=== PATIENT | male | born 1990 | race African-American/Black ===

== ENCOUNTER 2017-07-06 04:00 | Emergency (ER) | payer MEDICAID ==
[~2017-07-06] VITALS: Ht 185.4 cm; Wt 54.4 kg
[2017-07-06 08:50] VITALS: BP 98/61
[2017-07-06 09:49] LABS: Basophils # (auto) 0.1 uL; Eosinophils # (auto) 0.1 uL; Neutrophils # (auto) 9.6 uL; Red Cell Distribution Width 17.5 % (11.8-14.3)
[2017-07-06 09:51] LABS: Albumin 3.2 g/dL (3.4-5.0); BUN/Creatinine Ratio 21.3; Basophils % (auto) 0.5 % (0.0-2.0); Calcium 8.9 mg/dL (8.5-10.1); Eosinophils % (auto) 1.1 % (0.0-7.0); Hematocrit 36.4 % (41.0-53.0); Hemoglobin 11.4 g/dL (13.5-17.5); Lymphocytes # (auto) 2.2 uL; Lymphocytes % (auto) 17.2 % (10.0-50.0); Mean Corpuscular Hemoglobin 23.2 pg (28.0-32.0); Mean Corpuscular Hgb Conc. 31.2 g/dL (32.0-36.0); Mean Corpuscular Volume 74.3 fL (80.0-100.0); Monocytes # (auto) 0.6 uL; Monocytes % (auto) 4.5 % (0.0-12.0); Neutrophils % (auto) 76.7 % (37.0-80.0); Platelet Count (auto) 516 10^3/uL (140-450); Potassium 3.6 mmol/L (3.5-5.1); Red Blood Cells 4.89 10^6/uL (4.5-5.90); White Blood Cell 12.5 10^3/uL (4.4-10.8)
[2017-07-06 09:55] LABS: Bilirubin, Total 0.8 mg/dL (0.2-1.0); Total Protein 9.7 g/dL (6.4-8.2)
== END 2017-07-06 11:06 | disposition home or self-care (01) ==
LOC: ER 04:00
DX: S31.829D Unspecified open wound of left buttock, subsequent encounter (principal); S31.819D Unspecified open wound of right buttock, subsequent encounter; X58.XXXD Exposure to other specified factors, subsequent encounter; Z91.041 Radiographic dye allergy status
CPT/HCPCS: 36415; 80053; 83605; 85025; 87040

== ENCOUNTER 2018-04-20 19:04 | Emergency (ER) | payer MEDICAID ==
[~2018-04-20] VITALS: Ht 185.4 cm; Wt 59.0 kg
[2018-04-20 19:19] VITALS: BP 124/78
[2018-04-20 21:59] LABS: Basophils # (auto) 0.1 uL; Basophils % (auto) 0.6 % (0.0-2.0); Eosinophils # (auto) 0.2 uL; Eosinophils % (auto) 1.7 % (0.0-7.0); Hematocrit 35.9 % (41.0-53.0); Hemoglobin 11.3 g/dL (13.5-17.5); Lymphocytes # (auto) 2.8 uL; Lymphocytes % (auto) 20.3 % (10.0-50.0); Mean Corpuscular Hemoglobin 21.9 pg (28.0-32.0); Mean Corpuscular Hgb Conc. 31.5 g/dL (32.0-36.0); Mean Corpuscular Volume 69.5 fL (80.0-100.0); Monocytes % (auto) 7.3 % (0.0-12.0); Neutrophils # (auto) 9.7 uL; Neutrophils % (auto) 70.1 % (37.0-80.0); Nucleated Red Blood Cells % 0.1 %; Platelet Count (auto) 468 10^3/uL (140-450); Red Blood Cells 5.17 10^6/uL (4.5-5.90); Red Cell Distribution Width 17.2 % (11.8-14.3); White Blood Cell 13.9 10^3/uL (4.4-10.8)
[2018-04-20 22:13] LABS: Albumin 2.9 g/dL (3.4-5.0); Calcium 8.5 mg/dL (8.5-10.1); Potassium 3.8 mmol/L (3.5-5.1)
[2018-04-20 22:16] LABS: BUN/Creatinine Ratio 17.2; Bilirubin, Total 0.3 mg/dL (0.2-1.0); Total Protein 8.7 g/dL (6.4-8.2)
== END 2018-04-21 08:21 | disposition left against medical advice (07) ==
LOC: ER 19:14
DX: S91.302D Unspecified open wound, left foot, subsequent encounter (principal); Z53.21 Procedure and treatment not carried out due to patient leaving prior to being seen by health care provider; X58.XXXD Exposure to other specified factors, subsequent encounter
CPT/HCPCS: 36415; 80053; 85025

== ENCOUNTER 2018-12-06 22:36 | Emergency (ER) | payer MEDICAID ==
[~2018-12-06] VITALS: Ht 185.4 cm; Wt 74.8 kg
[2018-12-07 01:12] VITALS: BP 111/66
[2018-12-07] MEDS ORDERED: GABAPENTIN 400 MG CAP PO ONE (01:45)
== END 2018-12-07 01:58 | disposition home or self-care (01) ==
LOC: ER 22:41
DX: G62.9 Polyneuropathy, unspecified (principal); T14.8XXA Other injury of unspecified body region, initial encounter; G82.20 Paraplegia, unspecified; X58.XXXA Exposure to other specified factors, initial encounter; Y93.89 Activity, other specified; Y99.8 Other external cause status; Y92.89 Other specified places as the place of occurrence of the external cause

== ENCOUNTER 2018-12-18 14:47 | Emergency (ER) | payer MEDICAID ==
[~2018-12-18] VITALS: Ht 185.4 cm; Wt 54.4 kg
[2018-12-18 15:08] VITALS: BP 120/84
== END 2018-12-18 15:14 | disposition left against medical advice (07) ==
LOC: ER 14:52
DX: R10.9 Unspecified abdominal pain (principal); Z53.21 Procedure and treatment not carried out due to patient leaving prior to being seen by health care provider

== ENCOUNTER → 2018-12-23 09:40 | Emergency (ER) | payer MEDICAID ==
[~2018-12-23] VITALS: Ht 185.4 cm; Wt 50.4 kg
[~2018-12-23 09:40] MED LIST: PIPERACILLIN-TAZOB 3.375GM 100 ML IV ONE; SODIUM CHLORIDE 0.9% 1,000 ML IV ONE; VANCOMYCIN 1GM/250ML 250 ML IV ONE
[2018-12-23 10:44] LABS: Basophils # (auto) 0 uL; Hematocrit 40.4 % (41.0-53.0); Lymphocytes # (auto) 1.3 uL; Neutrophils # (auto) 4.5 uL; Red Cell Distribution Width 19.6 % (11.8-14.3); White Blood Cell 6.4 10^3/uL (4.4-10.8)
[2018-12-23 10:46] LABS: Basophils % (auto) 0.4 % (0.0-2.0); Eosinophils # (auto) 0.2 uL; Eosinophils % (auto) 2.7 % (0.0-7.0); Hemoglobin 12.7 g/dL (13.5-17.5); Lymphocytes % (auto) 20.6 % (10.0-50.0); Mean Corpuscular Hemoglobin 24.2 pg (28.0-32.0); Mean Corpuscular Hgb Conc. 31.4 g/dL (32.0-36.0); Mean Corpuscular Volume 76.9 fL (80.0-100.0); Monocytes # (auto) 0.3 uL; Monocytes % (auto) 5.5 % (0.0-12.0); Neutrophils % (auto) 70.8 % (37.0-80.0); Nucleated Red Blood Cells % 0.1 %; Platelet Count (auto) 298 10^3/uL (140-450); Red Blood Cells 5.26 10^6/uL (4.5-5.90)
[2018-12-23 11:02] LABS: Albumin 2.9 g/dL (3.4-5.0); Anion Gap 8 (5-15); Aspartate Aminotransferase 17 U/L (15-37); Blood Urea Nitrogen 8 mg/dL (7-18); Calcium 8.5 mg/dL (8.5-10.1); Carbon Dioxide 23 mmol/L (21-32); Chloride 110 mmol/L (98-107); Glucose 83 mg/dL (74-106); Potassium 3.9 mmol/L (3.5-5.1); Sodium 141 mmol/L (136-145)
[2018-12-23 11:06] LABS: Alanine Aminotransferase 23 U/L (16-61); Alkaline Phosphatase 73 U/L (45-117); BUN/Creatinine Ratio 9.3; Bilirubin, Total 0.3 mg/dL (0.2-1.0); GFR African American 135 mL/min; GFR Non-African American 112 mL/min; Total Protein 7.9 g/dL (6.4-8.2)
[2018-12-23 13:59] VITALS: BP 108/58
== END | disposition home or self-care (01) ==
LOC: ER 09:40
DX: L89.219 Pressure ulcer of right hip, unspecified stage (principal); L03.317 Cellulitis of buttock; E46 Unspecified protein-calorie malnutrition; F17.210 Nicotine dependence, cigarettes, uncomplicated; Z88.5 Allergy status to narcotic agent; Z88.8 Allergy status to other drugs, medicaments and biological substances; Z68.1 Body mass index [BMI] 19.9 or less, adult
CPT/HCPCS: 36415; 71045; 80053; 83605; 84484; 85025; 87040; 96365; 99284; J3370; J7030; J2543

== ENCOUNTER 2018-12-28 10:34 | Inpatient (IN) | payer MEDICAID ==
[~2018-12-28] VITALS: Ht 185.4 cm; Wt 74.1 kg
[2018-12-28] MEDS ORDERED: SODIUM CHLORIDE 0.9% 1,000 ML IV ONE (11:21)
[2018-12-28 12:02] LABS: Basophils # (auto) 0 uL; Eosinophils # (auto) 0.2 uL; Hemoglobin 14.6 g/dL (13.5-17.5); Lymphocytes # (auto) 1.9 uL; Mean Corpuscular Hemoglobin 24.5 pg (28.0-32.0); Monocytes # (auto) 0.3 uL
[2018-12-28 12:04] LABS: Basophils % (auto) 0.5 % (0.0-2.0); Eosinophils % (auto) 2.3 % (0.0-7.0); Hematocrit 46.5 % (41.0-53.0); Lymphocytes % (auto) 21.8 % (10.0-50.0); Mean Corpuscular Hgb Conc. 31.4 g/dL (32.0-36.0); Mean Corpuscular Volume 78.1 fL (80.0-100.0); Monocytes % (auto) 3.2 % (0.0-12.0); Neutrophils # (auto) 6.2 uL; Neutrophils % (auto) 72.2 % (37.0-80.0); Nucleated Red Blood Cells % 0.1 %; Platelet Count (auto) 224 10^3/uL (140-450); Red Blood Cells 5.96 10^6/uL (4.5-5.90); Red Cell Distribution Width 19.4 % (11.8-14.3); White Blood Cell 8.6 10^3/uL (4.4-10.8)
[2018-12-28 12:23] LABS: Albumin 3.5 g/dL (3.4-5.0); BUN/Creatinine Ratio 14.3; Potassium 3.9 mmol/L (3.5-5.1)
[2018-12-28 12:26] LABS: Bilirubin, Total 0.2 mg/dL (0.2-1.0); Total Protein 8.9 g/dL (6.4-8.2)
[2018-12-28] MEDS ORDERED: TEMAZEPAM 15 MG CAP PO PRN (14:30)
[2018-12-28] MEDS ORDERED: PROMETHAZINE HCL 25 MG/ML 1ML IV PRN (14:30)
[2018-12-28] MEDS ORDERED: HYDROcodone-ACET 5/325MG TAB PO PRN (14:30)
[2018-12-28] MEDS ORDERED: ACETAMINOPHEN 500 MG TAB PO PRN (14:30)
[2018-12-28] MEDS ORDERED: LEVOFLOXACIN 500MG 100 ML IV ONE (14:30)
[2018-12-28] MEDS: SODIUM CHLORIDE 0.9% 1,000 ML IV SCH ×3 (14:37→16:19)
[2018-12-28] MEDS ORDERED: KETOROLAC TROMETH 30 MG/ML 1ML VIAL IV PRN (14:45)
[2018-12-28] MEDS: KETOROLAC TROMETH 30 MG/ML 1ML VIAL IV PRN ×2 (15:07→21:53)
[2018-12-28 17:00] VITALS: BP 112/75
[2018-12-28] MEDS: CLINDAMYCIN 600MG IV 50 ML IV SCH (21:52)
[2018-12-28] MEDS: FAMOTIDINE 20 MG TAB PO SCH (21:52)
[2018-12-28 22:00] VITALS: BP 101/62
[2018-12-29] MEDS: KETOROLAC TROMETH 30 MG/ML 1ML VIAL IV PRN ×3 (05:11→20:38)
[2018-12-29] MEDS: CLINDAMYCIN 600MG IV 50 ML IV SCH ×3 (05:11→21:54)
[2018-12-29 05:47] VITALS: BP 99/50
[2018-12-29 09:15] VITALS: BP 87/55
[2018-12-29] MEDS: LEVOFLOXACIN 500MG 100 ML IV SCH (10:53)
[2018-12-29] MEDS: FAMOTIDINE 20 MG TAB PO SCH ×2 (10:54→21:54)
[2018-12-29 14:19] VITALS: BP 122/70
[2018-12-29] MEDS ORDERED: OXYCODONE W/ ACETAMINOPHEN 5/325MG TABLET PO PRN (16:15)
[2018-12-29] MEDS: OXYCODONE W/ ACETAMINOPHEN 5/325MG TABLET PO PRN (16:38)
[2018-12-29 22:00] VITALS: BP 100/66
[2018-12-30 05:00] VITALS: BP 99/50
[2018-12-30] MEDS: CLINDAMYCIN 600MG IV 50 ML IV SCH ×3 (06:02→22:03)
[2018-12-30] MEDS: KETOROLAC TROMETH 30 MG/ML 1ML VIAL IV PRN ×2 (06:53→22:04)
[2018-12-30 09:36] VITALS: BP 105/66
[2018-12-30] MEDS: OXYCODONE W/ ACETAMINOPHEN 5/325MG TABLET PO PRN ×2 (10:26→16:24)
[2018-12-30] MEDS: FAMOTIDINE 20 MG TAB PO SCH ×2 (10:26→22:03)
[2018-12-30] MEDS: LEVOFLOXACIN 500MG 100 ML IV SCH (10:26)
[2018-12-30 17:00] VITALS: BP 99/58
[2018-12-30 22:00] VITALS: BP 94/47
[2018-12-30 22:03] VITALS: BP 122/42
[2018-12-31] MEDS: OXYCODONE W/ ACETAMINOPHEN 5/325MG TABLET PO PRN ×3 (00:31→12:32)
[2018-12-31 05:00] VITALS: BP 90/44
[2018-12-31] MEDS: CLINDAMYCIN 600MG IV 50 ML IV SCH ×2 (05:23→13:50)
[2018-12-31 05:30] VITALS: BP 116/81
[2018-12-31 08:05] LABS: Basophils # (auto) 0.1 uL; Basophils % (auto) 0.8 % (0.0-2.0); Eosinophils # (auto) 0.2 uL; Eosinophils % (auto) 3.2 % (0.0-7.0); Hematocrit 40.4 % (41.0-53.0); Hemoglobin 12.7 g/dL (13.5-17.5); Lymphocytes # (auto) 2.1 uL; Lymphocytes % (auto) 32.3 % (10.0-50.0); Mean Corpuscular Hemoglobin 24.1 pg (28.0-32.0); Mean Corpuscular Hgb Conc. 31.4 g/dL (32.0-36.0); Mean Corpuscular Volume 76.8 fL (80.0-100.0); Monocytes # (auto) 0.4 uL; Monocytes % (auto) 6.8 % (0.0-12.0); Neutrophils # (auto) 3.7 uL; Neutrophils % (auto) 56.9 % (37.0-80.0); Nucleated Red Blood Cells % 0.2 %; Platelet Count (auto) 289 10^3/uL (140-450); Red Blood Cells 5.27 10^6/uL (4.5-5.90); Red Cell Distribution Width 18.8 % (11.8-14.3); White Blood Cell 6.6 10^3/uL (4.4-10.8)
[2018-12-31 08:08] LABS: Calcium 8.7 mg/dL (8.5-10.1); Potassium 4.3 mmol/L (3.5-5.1)
[2018-12-31 08:10] LABS: BUN/Creatinine Ratio 21.4
[2018-12-31 08:52] VITALS: BP 98/64
[2018-12-31] MEDS: FAMOTIDINE 20 MG TAB PO SCH (10:40)
[2018-12-31] MEDS: LEVOFLOXACIN 500MG 100 ML IV SCH (10:41)
[2018-12-31] MEDS: KETOROLAC TROMETH 30 MG/ML 1ML VIAL IV PRN (11:43)
[2018-12-31 13:00] VITALS: BP 105/65
[2018-12-31 16:40] VITALS: BP 96/58
[2018-12-31 16:57] VITALS: BP 96/58
== END 2018-12-31 18:40 | disposition home health service (06) | DRG 380 ==
LOC: ER 10:36 → OVERFLOW 10:37 → WEST WING 17:22
PROVIDERS: ADMIT Internal Medicine; ATTEND Internal Medicine
DX: L97.519 Non-pressure chronic ulcer of other part of right foot with unspecified severity (principal); L89.159 Pressure ulcer of sacral region, unspecified stage; L89.213 Pressure ulcer of right hip, stage 3; L03.115 Cellulitis of right lower limb; G82.20 Paraplegia, unspecified; L97.529 Non-pressure chronic ulcer of other part of left foot with unspecified severity; L03.116 Cellulitis of left lower limb; F17.210 Nicotine dependence, cigarettes, uncomplicated; Z74.01 Bed confinement status; Z93.3 Colostomy status; Z88.0 Allergy status to penicillin; Z88.8 Allergy status to other drugs, medicaments and biological substances; Z88.5 Allergy status to narcotic agent; Z91.041 Radiographic dye allergy status
CPT/HCPCS: 36415; 73700; 80048; 80053; 83605; 85025; 85652; 87040; 96374; G0378; J1885; J1956; J3490

== ENCOUNTER 2019-01-04 19:29 | Emergency (ER) | payer MEDICAID ==
[~2019-01-04] VITALS: Ht 185.4 cm; Wt 72.6 kg
[2019-01-04] MEDS ORDERED: HYDROcodone-ACET 10/325MG TAB PO ONE (22:45)
[2019-01-04 23:12] VITALS: BP 114/70
== END 2019-01-04 23:51 | disposition home or self-care (01) ==
LOC: ER 19:30
DX: S33.5XXA Sprain of ligaments of lumbar spine, initial encounter (principal); L89.319 Pressure ulcer of right buttock, unspecified stage; F17.210 Nicotine dependence, cigarettes, uncomplicated; Z88.6 Allergy status to analgesic agent; Z88.8 Allergy status to other drugs, medicaments and biological substances; X58.XXXA Exposure to other specified factors, initial encounter; Y93.89 Activity, other specified; Y92.89 Other specified places as the place of occurrence of the external cause; Y99.8 Other external cause status

== ENCOUNTER 2019-01-26 15:37 | Emergency (ER) | payer MEDICAID ==
[~2019-01-26] VITALS: Ht 185.4 cm; Wt 77.1 kg
[2019-01-26] MEDS ORDERED: SODIUM CHLORIDE 0.9% 1,000 ML IV ONE (16:31)
[2019-01-26 17:00] LABS: Urine Bacteria MOD /hpf (None Seen); Urine Blood 1+ /uL (Negative); Urine Specific Gravity 1.024 (1.001-1.035); Urine WBC 522 /hpf (0 - 3)
[2019-01-26 17:33] LABS: Basophils # (auto) 0 uL; Eosinophils # (auto) 0 uL; Nucleated Red Blood Cells % 0.1 %
[2019-01-26 17:35] LABS: Basophils % (auto) 0.2 % (0.0-2.0); Eosinophils % (auto) 0.3 % (0.0-7.0); Hemoglobin 12.2 g/dL (13.5-17.5); Lymphocytes # (auto) 0.8 uL; Lymphocytes % (auto) 10.4 % (10.0-50.0); Mean Corpuscular Hemoglobin 24.3 pg (28.0-32.0); Mean Corpuscular Hgb Conc. 32.2 g/dL (32.0-36.0); Mean Corpuscular Volume 75.6 fL (80.0-100.0); Monocytes # (auto) 0.2 uL; Neutrophils % (auto) 86.1 % (37.0-80.0); Platelet Count (auto) 194 10^3/uL (140-450); Red Blood Cells 5.02 10^6/uL (4.5-5.90); Red Cell Distribution Width 17.7 % (11.8-14.3); White Blood Cell 8.2 10^3/uL (4.4-10.8)
[2019-01-26] MEDS ORDERED: cefTRIAXone 1GM/50ML D5W 50 ML IV ONE (17:45)
[2019-01-26 17:58] LABS: Albumin 3.1 g/dL (3.4-5.0); BUN/Creatinine Ratio 15.9; Calcium 8.9 mg/dL (8.5-10.1); Potassium 3.4 mmol/L (3.5-5.1)
[2019-01-26 18:01] LABS: Bilirubin, Total 0.6 mg/dL (0.2-1.0); Total Protein 8.2 g/dL (6.4-8.2)
[2019-01-26] MEDS ORDERED: POTASSIUM EFFERVESENT TAB 25 MEQ PO ONE (18:15)
[2019-01-26 19:38] VITALS: BP 114/70
== END 2019-01-26 20:06 | disposition home or self-care (01) ==
LOC: EDUNIT# 15:37 → ER 15:37 → EDBD 15:37 → ER 20:06
DX: N39.0 Urinary tract infection, site not specified (principal); L97.519 Non-pressure chronic ulcer of other part of right foot with unspecified severity; L89.312 Pressure ulcer of right buttock, stage 2; G82.20 Paraplegia, unspecified; E87.6 Hypokalemia; E46 Unspecified protein-calorie malnutrition; Z68.22 Body mass index [BMI] 22.0-22.9, adult; F17.210 Nicotine dependence, cigarettes, uncomplicated; Z88.0 Allergy status to penicillin; Z88.8 Allergy status to other drugs, medicaments and biological substances; Z88.5 Allergy status to narcotic agent
CPT/HCPCS: 36415; 73700; 80053; 81001; 83735; 85025; 96365; 99284; J0696

== ENCOUNTER 2019-04-17 21:16 | Emergency (ER) | payer MEDICAID ==
[~2019-04-17] VITALS: Ht 185.4 cm; Wt 73.0 kg
[~2019-04-17 21:16] MED LIST changes: +FOLI1TAB6 PO; +HYDR-4833 PO; +MULT1TAB61 PO; -PIPERACILLIN-TAZOB 3.375GM 100 ML IV ONE; -SODIUM CHLORIDE 0.9% 1,000 ML IV ONE; -VANCOMYCIN 1GM/250ML 250 ML IV ONE
[2019-04-17 21:53] VITALS: BP 124/76
== END 2019-04-18 00:26 | disposition left against medical advice (07) ==
LOC: ER 21:19
DX: M62.830 Muscle spasm of back (principal); Z53.21 Procedure and treatment not carried out due to patient leaving prior to being seen by health care provider

== ENCOUNTER → 2019-05-08 | Emergency (ER) | payer MEDICAID ==
[~2019-05-08] VITALS: Ht 185.4 cm; Wt 72.6 kg
[~2019-05-08] MED LIST changes: +IBUPROFEN 800 MG TAB PO ONE
[2019-05-08 16:11] VITALS: BP 106/67
== END | disposition home or self-care (01) ==
LOC: ER 16:01
DX: L03.115 Cellulitis of right lower limb (principal); L89.899 Pressure ulcer of other site, unspecified stage; F17.210 Nicotine dependence, cigarettes, uncomplicated; Z79.899 Other long term (current) drug therapy; Z88.8 Allergy status to other drugs, medicaments and biological substances; Z88.5 Allergy status to narcotic agent
CPT/HCPCS: 73700

== ENCOUNTER 2019-05-09 20:37 | Emergency (ER) | payer MEDICAID ==
[~2019-05-09] VITALS: Ht 185.4 cm; Wt 49.9 kg
[~2019-05-09 20:37] MED LIST changes: -IBUPROFEN 800 MG TAB PO ONE
[2019-05-09 22:00] LABS: Basophils # (auto) 0 10 ^3/uL (0-0.2); Eosinophils # (auto) 0.2 10 ^3/uL (0-0.8); Hemoglobin 11.9 g/dL (13.5-17.5); Lymphocytes # (auto) 1.4 10 ^3/uL (0.4-5.4); Monocytes # (auto) 0.5 10 ^3/uL (0-1.3); Neutrophils # (auto) 3.2 10 ^3/uL (1.6-8.6); Nucleated Red Blood Cells % 0.1 %; White Blood Cell 5.3 10^3/uL (4.4-10.8)
[2019-05-09 22:03] LABS: Basophils % (auto) 0.4 % (0.0-2.0); Eosinophils % (auto) 3.6 % (0.0-7.0); Hematocrit 36.5 % (41.0-53.0); Mean Corpuscular Hemoglobin 25.5 pg (28.0-32.0); Mean Corpuscular Hgb Conc. 32.5 g/dL (32.0-36.0); Mean Corpuscular Volume 78.5 fL (80.0-100.0); Monocytes % (auto) 9.8 % (0.0-12.0); Neutrophils % (auto) 60.2 % (37.0-80.0); Platelet Count (auto) 239 10^3/uL (140-450); Red Blood Cells 4.65 10^6/uL (4.5-5.90)
[2019-05-09 22:22] LABS: Albumin 2.9 g/dL (3.4-5.0); BUN/Creatinine Ratio 17.3; Calcium 8.2 mg/dL (8.5-10.1); Potassium 3.4 mmol/L (3.5-5.1)
[2019-05-09 22:31] LABS: Bilirubin, Total 0.2 mg/dL (0.2-1.0); Total Protein 7.9 g/dL (6.4-8.2)
[2019-05-10 00:30] LABS: Urine Amorphous Crystal FEW /hpf (None Seen); Urine Bacteria FEW /hpf (None Seen); Urine Blood TRACE /uL (Negative); Urine Specific Gravity 1.012 (1.001-1.035); Urine WBC 116 /hpf (0 - 3)
[2019-05-10] MEDS ORDERED: cefTRIAXone 1GM/50ML D5W 50 ML IV ONE (01:30)
[2019-05-10] MEDS ORDERED: CLINDAMYCIN 600MG IV 50 ML IV ONE (01:30)
[2019-05-10] MEDS ORDERED: ONDANSETRON HCL 4 MG/2 ML VIAL IV ONE (02:30)
[2019-05-10] MEDS ORDERED: HYDROmorphone HCL 2 MG/ML VL IV ONE (02:30)
[2019-05-10 06:00] VITALS: BP 119/71
== END 2019-05-10 06:35 | disposition home or self-care (01) ==
LOC: ER 20:39
DX: L03.115 Cellulitis of right lower limb (principal); R59.1 Generalized enlarged lymph nodes; F17.210 Nicotine dependence, cigarettes, uncomplicated; Z88.8 Allergy status to other drugs, medicaments and biological substances
CPT/HCPCS: 36415; 80053; 81001; 85025; 87077; 87186; 87205; 96365; 96366; 96367; 96375; 99284; J0696; J1170; J2405; J3490

== ENCOUNTER 2019-07-05 00:11 | Emergency (ER) | payer MEDICAID ==
[~2019-07-05] VITALS: Ht 185.4 cm; Wt 56.7 kg
[2019-07-05 01:33] VITALS: BP 108/77
== END 2019-07-05 03:13 | disposition home or self-care (01) ==
LOC: ER 00:13
DX: S24.154A Other incomplete lesion at T11-T12 level of thoracic spinal cord, initial encounter (principal); M62.838 Other muscle spasm; Z88.1 Allergy status to other antibiotic agents; Z91.041 Radiographic dye allergy status; Z88.8 Allergy status to other drugs, medicaments and biological substances; X58.XXXA Exposure to other specified factors, initial encounter; Y93.89 Activity, other specified; Y92.89 Other specified places as the place of occurrence of the external cause; Y99.8 Other external cause status

== ENCOUNTER 2019-07-17 23:12 | Emergency (ER) | payer MEDICAID ==
[~2019-07-17] VITALS: Ht 185.4 cm; Wt 59.0 kg
[2019-07-18 00:53] VITALS: BP 117/72
[2019-07-18 01:01] LABS: Basophils # (auto) 0 10 ^3/uL (0-0.2); Basophils % (auto) 0.3 % (0.0-2.0); Eosinophils # (auto) 0.1 10 ^3/uL (0-0.8); Eosinophils % (auto) 0.8 % (0.0-7.0); Hematocrit 43.7 % (41.0-53.0); Hemoglobin 13.8 g/dL (13.5-17.5); Lymphocytes # (auto) 2.5 10 ^3/uL (0.4-5.4); Lymphocytes % (auto) 23.9 % (10.0-50.0); Mean Corpuscular Hemoglobin 25.5 pg (28.0-32.0); Mean Corpuscular Hgb Conc. 31.6 g/dL (32.0-36.0); Mean Corpuscular Volume 80.7 fL (80.0-100.0); Monocytes # (auto) 0.6 10 ^3/uL (0-1.3); Neutrophils # (auto) 7.2 10 ^3/uL (1.6-8.6); Nucleated Red Blood Cells % 0.2 %; Platelet Count (auto) 253 10^3/uL (140-450); Red Blood Cells 5.42 10^6/uL (4.5-5.90); Red Cell Distribution Width 16.3 % (11.8-14.3); White Blood Cell 10.5 10^3/uL (4.4-10.8)
[2019-07-18 01:20] LABS: Albumin 3.1 g/dL (3.4-5.0); Anion Gap 9 (5-15); Blood Urea Nitrogen 17 mg/dL (7-18); Calcium 8.3 mg/dL (8.5-10.1); Carbon Dioxide 20 mmol/L (21-32); Chloride 106 mmol/L (98-107); GFR African American 160 mL/min; GFR Non-African American 132 mL/min; Glucose 93 mg/dL (74-106); Potassium 3.7 mmol/L (3.5-5.1); Sodium 135 mmol/L (136-145)
[2019-07-18 01:24] LABS: Alanine Aminotransferase 45 U/L (16-61); Alkaline Phosphatase 89 U/L (45-117); Aspartate Aminotransferase 42 U/L (15-37); Bilirubin, Total 0.3 mg/dL (0.2-1.0); Total Protein 8.2 g/dL (6.4-8.2)
[2019-07-18 01:35] LABS: Urine WBC None Seen /hpf (0 - 3)
[2019-07-18 01:37] LABS: Urine Bacteria NONE SEEN /hpf (None Seen); Urine Blood Negative /uL (Negative); Urine Specific Gravity 1.001 (1.001-1.035)
== END 2019-07-18 02:23 | disposition left against medical advice (07) ==
LOC: ER 23:16
DX: S24.154A Other incomplete lesion at T11-T12 level of thoracic spinal cord, initial encounter (principal); L02.31 Cutaneous abscess of buttock; Z88.5 Allergy status to narcotic agent; Z88.8 Allergy status to other drugs, medicaments and biological substances; Z91.041 Radiographic dye allergy status; X58.XXXA Exposure to other specified factors, initial encounter; Y93.9 Activity, unspecified; Y92.89 Other specified places as the place of occurrence of the external cause; Y99.8 Other external cause status
CPT/HCPCS: 36415; 72192; 80053; 81001; 83735; 85025

== ENCOUNTER 2019-08-03 13:15 | Emergency (ER) | payer MEDICAID ==
[~2019-08-03] VITALS: Ht 185.4 cm; Wt 59.0 kg
[2019-08-03 14:44] LABS: Basophils # (auto) 0 10 ^3/uL (0-0.2); Eosinophils # (auto) 0.1 10 ^3/uL (0-0.8); Lymphocytes # (auto) 1.9 10 ^3/uL (0.4-5.4); Monocytes # (auto) 0.5 10 ^3/uL (0-1.3); Monocytes % (auto) 6.8 % (0.0-12.0); Nucleated Red Blood Cells % 0.1 %; Red Cell Distribution Width 15.9 % (11.8-14.3)
[2019-08-03 14:47] LABS: Basophils % (auto) 0.3 % (0.0-2.0); Eosinophils % (auto) 1.2 % (0.0-7.0); Hematocrit 43.1 % (41.0-53.0); Hemoglobin 13.8 g/dL (13.5-17.5); Lymphocytes % (auto) 27.3 % (10.0-50.0); Mean Corpuscular Hemoglobin 25.6 pg (28.0-32.0); Mean Corpuscular Hgb Conc. 32.1 g/dL (32.0-36.0); Mean Corpuscular Volume 79.9 fL (80.0-100.0); Neutrophils # (auto) 4.5 10 ^3/uL (1.6-8.6); Neutrophils % (auto) 64.4 % (37.0-80.0); Platelet Count (auto) 249 10^3/uL (140-450)
[2019-08-03 15:19] LABS: Albumin 3.6 g/dL (3.4-5.0); BUN/Creatinine Ratio 15.3; Bilirubin, Total 0.6 mg/dL (0.2-1.0); Calcium 8.8 mg/dL (8.5-10.1); Total Protein 8.4 g/dL (6.4-8.2)
[2019-08-03] MEDS ORDERED: SODIUM CHLORIDE 0.9% 500 ML IVB ONE (16:54)
[2019-08-03] MEDS ORDERED: SODIUM CHLORIDE 0.9% 1,000 ML IV ONE (16:54)
[2019-08-03] MEDS ORDERED: HYDROmorphone HCL 2 MG/ML VL IV ONE (17:00)
[2019-08-03] MEDS ORDERED: METOCLOPRAMIDE HCL 5MG/ml INJ 2ml VIAL IV ONE (17:00)
[2019-08-03 17:19] VITALS: BP 101/73
[2019-08-03 17:24] LABS: Magnesium 2.1 mg/dL (1.6-2.6)
[2019-08-03 20:27] LABS: Urine Bacteria NONE SEEN /hpf (None Seen); Urine Blood Negative /uL (Negative); Urine Specific Gravity 1.001 (1.001-1.035); Urine WBC <1 /hpf (0 - 3)
== END 2019-08-03 21:07 | disposition home or self-care (01) ==
LOC: ER 13:15
DX: K52.9 Noninfective gastroenteritis and colitis, unspecified (principal); Z87.891 Personal history of nicotine dependence; Z79.899 Other long term (current) drug therapy; Z88.0 Allergy status to penicillin; Z88.5 Allergy status to narcotic agent; Z88.8 Allergy status to other drugs, medicaments and biological substances
CPT/HCPCS: 36415; 71045; 80053; 81001; 83690; 83735; 85025; 96361; 96374; 96375; 99284; J1170; J2765; J7030; J7040

== ENCOUNTER 2019-08-30 19:46 | Emergency (ER) | payer MEDICAID ==
[~2019-08-30] VITALS: Ht 185.4 cm; Wt 63.5 kg
[2019-08-30 23:16] VITALS: BP 128/72
== END 2019-08-31 00:09 | disposition home or self-care (01) ==
LOC: ER 19:47
DX: L03.115 Cellulitis of right lower limb (principal); Z88.5 Allergy status to narcotic agent; Z88.1 Allergy status to other antibiotic agents; Z88.8 Allergy status to other drugs, medicaments and biological substances; Z91.041 Radiographic dye allergy status
CPT/HCPCS: 73700

== ENCOUNTER 2019-09-18 19:03 | Emergency (ER) | payer MEDICAID ==
[~2019-09-18] VITALS: Ht 182.9 cm; Wt 49.9 kg
[2019-09-18 20:48] VITALS: BP 120/85
[2019-09-18 21:20] LABS: Basophils # (auto) 0 10 ^3/uL (0-0.2); Eosinophils # (auto) 0.2 10 ^3/uL (0-0.8); Monocytes # (auto) 0.5 10 ^3/uL (0-1.3)
[2019-09-18 21:22] LABS: Basophils % (auto) 0.5 % (0.0-2.0); Eosinophils % (auto) 2.6 % (0.0-7.0); Hematocrit 43.4 % (41.0-53.0); Hemoglobin 13.6 g/dL (13.5-17.5); Lymphocytes # (auto) 1.9 10 ^3/uL (0.4-5.4); Lymphocytes % (auto) 25.9 % (10.0-50.0); Mean Corpuscular Hemoglobin 25.2 pg (28.0-32.0); Mean Corpuscular Hgb Conc. 31.3 g/dL (32.0-36.0); Mean Corpuscular Volume 80.3 fL (80.0-100.0); Neutrophils # (auto) 4.6 10 ^3/uL (1.6-8.6); Nucleated Red Blood Cells % 0.2 %; Platelet Count (auto) 269 10^3/uL (140-450); Red Blood Cells 5.41 10^6/uL (4.5-5.90); Red Cell Distribution Width 15.6 % (11.8-14.3); White Blood Cell 7.1 10^3/uL (4.4-10.8)
[2019-09-18 21:38] LABS: Albumin 3.2 g/dL (3.4-5.0); Calcium 9.1 mg/dL (8.5-10.1)
[2019-09-18 21:42] LABS: Bilirubin, Total 0.2 mg/dL (0.2-1.0); Total Protein 8.5 g/dL (6.4-8.2)
== END 2019-09-18 22:15 | disposition home or self-care (01) ==
LOC: ER 19:03
DX: R05 Cough (principal); Z20.828 Contact with and (suspected) exposure to other viral communicable diseases; Z87.891 Personal history of nicotine dependence; Z88.0 Allergy status to penicillin; Z88.6 Allergy status to analgesic agent; Z88.8 Allergy status to other drugs, medicaments and biological substances; Z79.899 Other long term (current) drug therapy
CPT/HCPCS: 36415; 71045; 80053; 85025; 87635

== ENCOUNTER → 2020-03-12 | Emergency (ER) | payer MEDICAID ==
[~2020-03-12] VITALS: Ht 188 cm; Wt 81.6 kg
[~2020-03-12] MED LIST changes: +cefTRIAXone SOD 1,000 MG VL IM ONE
[2020-03-12 16:56] VITALS: BP 127/86
== END | disposition home or self-care (01) ==
LOC: ER 16:47
DX: J18.9 Pneumonia, unspecified organism (principal); Z20.828 Contact with and (suspected) exposure to other viral communicable diseases
CPT/HCPCS: 36415; 71045; 87426; 96372; 99284; J0696